=== PATIENT | female | born 2000 | race Caucasian/White ===

== ENCOUNTER → 2021-07-04 | Outpatient (CLI) | payer BC ==
[2021-07-04 10:51] LABS: HEMATOCRIT 46 % (35-52); HEMOGLOBIN 15.3 g/dL (11.5-16.0); MEAN CORPUSCULAR HEMOGLOBIN 29 pg (25-34); MEAN CORPUSCULAR HGB CONC 33 g/dL (32-36); MEAN CORPUSCULAR VOLUME 88 fL (80-99); MEAN PLATELET VOLUME 10.6 fL (9.0-12.2); PLATELET COUNT 239 10^3/uL (130-400); WHITE BLOOD COUNT 7.2 10^3/uL (4.3-11.0)
[2021-07-04 11:00] LABS: ALBUMIN 4.4 GM/DL (3.2-4.5); POTASSIUM 3.6 MMOL/L (3.6-5.0)
[2021-07-04 11:02] LABS: CALCIUM 9.5 MG/DL (8.5-10.1)
[2021-07-04 11:03] LABS: TOTAL PROTEIN 7.6 GM/DL (6.4-8.2)
[2021-07-04 11:04] LABS: BILIRUBIN,TOTAL 0.7 MG/DL (0.1-1.0)
[2021-07-04 11:06] LABS: CREATININE SERUM 0.76 MG/DL (0.60-1.30)
[2021-07-04 11:10] LABS: FIBRIN DEGRADATION PRODUCTS 0.29 UG/ML (0.00-0.49); INR 1.1 (0.8-1.4); PROTHROMBIN TIME PATIENT 14.1 SEC (12.2-14.7)
--- NOTE | 2021-07-04 11:35 | Diagnostic Imaging Report ---
CLINICAL INDICATIONS: Patient with strain of trapezius muscle. EXAM: X-ray of the skull, AP and lateral views. COMPARISON: None. FINDINGS AND IMPRESSION: 1: There is no significant skull bony abnormality. There is no fracture or dislocation. 2: There is a curvilinear lucent area along the region of the bilateral transverse dural venous sinuses, likely related to bony remodeling in the region which may be normal for patient. 3: Cervical spine and soft tissue structures show no significant antibody. 4: There is prominence of the posterior nasopharyngeal adenoid soft tissue. Dictated by: Dictated on workstation # [id number]
--- NOTE | 2021-07-04 11:48 | Diagnostic Imaging Report ---
CLINICAL INDICATIONS: Patient with strain of right trapezius muscle. EXAM: X-ray of the cervical spine, 4 views. COMPARISON: None. FINDINGS: There is no acute cervical spine fracture or dislocation. Intervertebral disk heights and vertebral body heights are within normal limits. Odontoid views are unremarkable. There is no prevertebral soft tissue swelling. There is no gross soft tissue abnormalities visualized. IMPRESSION: Unremarkable x-ray of the cervical spine with no acute fracture or dislocation. Dictated by: Dictated on workstation # [id number]
== END ==
LOC: RAD 10:26
PROVIDERS: ATTEND Nurse Practitioner Community Health
DX: S46.811A Strain of other muscles, fascia and tendons at shoulder and upper arm level, right arm, initial encounter (principal); X58.XXXA Exposure to other specified factors, initial encounter
CPT/HCPCS: 36415; 70250; 72040; 80053; 84443; 85027; 85379; 85610; 85730